=== PATIENT | male | born 1965 | race Caucasian/White ===

== ENCOUNTER 2017-07-03 03:38 | Emergency (ER) | payer OTHER ==
[~2017-07-03] VITALS: Ht 172.7 cm; Wt 81.6 kg
--- NOTE | 2017-07-03 03:40 | NUR ---
52 YO MALE BB RA. PATIENT IS INTOXICATED WITH ALCOHOL, RESPONSIVE TO VERBAL STIMULI, PATIENT WAS GOWNED, PLACED ON ANNEALER. SKIN WARM AND DRY, RESP EVEN AND UNLABORED. AWAITING ORDERS FROM PROVIDER
--- NOTE | 2017-07-03 03:53 | NUR ---
PT TO CT
--- NOTE | 2017-07-03 03:58 | NUR ---
PT RETURNED FROM CT.
--- NOTE | 2017-07-03 05:10 | NUR ---
VITAL SIGNS UPDATED.
--- NOTE | 2017-07-03 06:34 | NUR ---
pt resting in er bed
--- NOTE | 2017-07-03 11:34 | NUR ---
PT IS AWAKE. AMBULATORY W/ STEADY GAIT. STATES WANT TO LEAVE ED. PROVIDED W/ ORAL FLUIDS. D/C IN STABLE CONDITION.
[2017-07-03 11:37] VITALS: BP 125/66
[2017-07-05] MEDS ORDERED: IBUPROFEN 400 MG TABLET ONE (21:00)
[2017-07-05] MEDS ORDERED: TDAP [DIPH/PERTUSSIS/TET] 0.5 ML VIAL IM ONE (21:01)
== END 2017-07-03 11:38 | disposition home or self-care (01) ==
LOC: ER 03:39
DX: S09.8XXA Other specified injuries of head, initial encounter (principal); F10.129 Alcohol abuse with intoxication, unspecified; X58.XXXA Exposure to other specified factors, initial encounter; Y93.89 Activity, other specified; Y92.89 Other specified places as the place of occurrence of the external cause; Y99.8 Other external cause status
CPT/HCPCS: 70450; 99284; A4606; Z7610; 90715

== ENCOUNTER 2017-07-03 21:43 | Emergency (ER) | payer OTHER ==
[~2017-07-03] VITALS: Ht 165.1 cm; Wt 70.8 kg
[2017-07-03 21:46] VITALS: BP 101/74
--- NOTE | 2017-07-03 22:45 | NUR ---
CALLED X2; INFORMED "PT WALKING OUT IN PARKING LOT"
--- NOTE | 2017-07-03 23:30 | NUR ---
CALLED AGAIN; NO ANSWER
--- NOTE | 2017-07-04 00:08 | NUR ---
INFORMED BY SECURITY "PT WALKED OUT"
== END 2017-07-04 00:31 | disposition left against medical advice (07) ==
LOC: ER 21:44
DX: Z53.21 Procedure and treatment not carried out due to patient leaving prior to being seen by health care provider (principal)
CPT/HCPCS: A4606; Z7610

== ENCOUNTER 2017-07-04 05:25 | Emergency (ER) | payer OTHER ==
--- NOTE | 2017-07-04 05:28 | NUR ---
CALLED FOR TRIAGE; INFORMED PT IN RESTROOM"
--- NOTE | 2017-07-04 05:41 | NUR ---
CALLED AGAIN; NOT IN LOBBY OR RESTROOM
--- NOTE | 2017-07-04 05:54 | NUR ---
CALLED AGAIN; STILL NOT IN LOBBY
--- NOTE | 2017-07-04 06:04 | NUR ---
CALLED AGAIN; NO ANSWER
--- NOTE | 2017-07-04 06:34 | NUR ---
CALLED AGAIN; NO ANSWER
== END 2017-07-04 06:35 | disposition left against medical advice (07) ==
LOC: ER 05:25
DX: Z53.21 Procedure and treatment not carried out due to patient leaving prior to being seen by health care provider (principal)
CPT/HCPCS: A4606; Z7610

== ENCOUNTER 2017-07-05 20:02 | Emergency (ER) | payer OTHER ==
[~2017-07-05] VITALS: Ht 167.6 cm; Wt 68.0 kg
--- NOTE | 2017-07-05 20:17 | NUR ---
PT LASHAY TO ER BED 14. PT C/O GENERALIZED PAIN. STRONG ETOH SEEN IN ER MULTIPLE TIMES FOR SAME REASON. STABLE VITALS. ASKING FOR PAIN MEDICATION. AWAITING MD BRIAN.
--- NOTE | 2017-07-05 20:21 | NUR ---
[employer] SERVICE SPECIALIST AT BEDSIDE FOR EVAL.
[2017-07-05] MEDS ORDERED: IBUPROFEN 400 MG TABLET PO ONE (20:30)
[2017-07-05] MEDS ORDERED: TDAP [DIPH/PERTUSSIS/TET] 0.5 ML VIAL IM ONE (21:00)
--- NOTE | 2017-07-05 21:03 | NUR ---
RADIOLOGY AT BEDSIDE FOR R KNEE/CHEST XRAY.
--- NOTE | 2017-07-06 05:05 | NUR ---
PT OK TO DISCHARGE PER DR OKEEFE. Patient is awake and alert to self, day, and place.Patient discharged to home in stable condition. Written and verbal after care instructions given. Patient verbalizes understanding of instruction. PT ambulatory with a steady gait
[2017-07-06 07:01] VITALS: BP 112/69
== END 2017-07-06 05:05 | disposition home or self-care (01) ==
LOC: ER 20:03
DX: S80.01XA Contusion of right knee, initial encounter (principal); S20.211A Contusion of right front wall of thorax, initial encounter; F15.10 Other stimulant abuse, uncomplicated; F10.129 Alcohol abuse with intoxication, unspecified; Z59.0 Homelessness; W22.8XXA Striking against or struck by other objects, initial encounter; Y93.89 Activity, other specified; Y92.89 Other specified places as the place of occurrence of the external cause; Y99.8 Other external cause status
CPT/HCPCS: 71100; 73564; 90471; 90715; 99284; A4606; Z7610